=== PATIENT | male | born 1935 | race Caucasian/White ===

== ENCOUNTER 2016-06-04 09:17 | Day surgery (SDC) | payer OTHER ==
[~2016-06-04 09:17] MED LIST: AMBIEN10 MG PO; CARDIZEM C1 PO; COUMADIN7.5 MG PO; FOSAMAX70 MG PO; LOVASTATIN20 MG PO; METOPROLOL SUCC50 MG PO; WARFARIN SODIUM5 MG PO
--- NOTE | 2016-06-04 10:27 | Provider's Discharge Care Plan ---
Problem, Goal, Plan Problem List 1. S/P colonoscopy Goals: Screening Instructions: Follow up as directed, Take meds as directed, high fiber diet
--- NOTE | 2016-06-04 10:27 | Provider's Discharge Care Plan ---
Problem, Goal, Plan Problem List 1. S/P colonoscopy Goals: Screening Instructions: Follow up as directed, Take meds as directed, high fiber diet
--- NOTE | 2016-06-04 11:22 | OPERATIVE REPORT ---
DATE OF SURGERY: 06/04/2016 SURGEON: Kay Zaldivar III, MD [employer] ADMINISTRATOR: None. PREOPERATIVE DIAGNOSIS: 1. Screening colonoscopy POSTOPERATIVE DIAGNOSES: 1. Extensive sigmoid diverticulosis 2. Grade 1 internal hemorrhoids PROCEDURE PERFORMED: 1. Colonoscopy ANESTHESIA: TIVA. INDICATIONS: The patient is an 80-year-old male whose last colonoscopy was approximately 10 years ago. He is asymptomatic. He is presently on warfarin with an INR of 2.5. SURGICAL FINDINGS: Normal-appearing cecum, ascending, transverse, and descending colon. The patient was noted to have an extensive sigmoid diverticulosis. The rectal vault was normal. The patient had prominent grade 1 internal hemorrhoids. SURGICAL TECHNIQUE: The patient was brought to the operating room and placed in the left lateral decubitus position, administered TIVA and monitored closely by anesthesia. After proper anesthesia had taken effect, a digital rectal examination revealed no masses or stenosis. This was followed by the passage of a fiberoptic video flexible Olympus colonoscope which, without difficulty, negotiated to the cecum. The cecum was identified by anatomical landmarks and anterior abdominal wall ballottement. On withdrawing the scope, the aforementioned findings were noted. The scope was withdrawn, retroflexed, good view of the rectal vault obtained. No other pathology identified. The scope was completely withdrawn. The patient tolerated the procedure well and was transferred to the recovery room in stable condition. There were no intraoperative or anesthetic complications.
[2016-06-04 11:57] VITALS: BP 115/67
== END 2016-06-04 12:48 | disposition home or self-care (01) ==
LOC: OR SRH 09:17 → SCU SRH 09:18 → OR SRH 10:30
PROVIDERS: Specialist
PROC: 0DJD8ZZ Inspection of Lower Intestinal Tract, Via Natural or Artificial Opening Endoscopic (ICD-10-PCS; principal; 2016-06-04 10:30)
DX: Z12.11 Encounter for screening for malignant neoplasm of colon (principal); K57.30 Diverticulosis of large intestine without perforation or abscess without bleeding; K64.0 First degree hemorrhoids; I48.91 Unspecified atrial fibrillation; Z79.01 Long term (current) use of anticoagulants; Z72.0 Tobacco use
CPT/HCPCS: 29229; 29240; 50004; 60001; 83526; 90047; 94060; 95059